=== PATIENT | male | born 1995 | race Caucasian/White ===

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

== ENCOUNTER 2017-02-22 13:17 | Outpatient (CLI) | payer BC ==
[~2017-02-22] VITALS: Ht 180.3 cm; Wt 60.0 kg
[2017-02-22 13:40] LABS: HEMATOCRIT 42.2 % (36.0-47.0); HEMOGLOBIN 14.4 g/dl (12.5-16.1); MEAN CELL VOLUME 77 fl (80.0-95.0); MEAN CORPUSCULAR HEMOGLOBIN 26 pg (26.0-32.0); MEAN CORPUSCULAR HGB CONC 34 g/dl (33.0-37.0); MEAN PLATELET VOLUME 9.9 fl (7.4-10.4); PLATELET COUNT 236 K/mm3 (130-400); RED BLOOD COUNT 5.45 M/mm3 (4.20-5.60); WHITE BLOOD COUNT 7.4 K/mm3 (4.8-10.8)
[2017-02-22 15:20] VITALS: BP 100/67; PULSE 73; TEMP 98
[2017-02-22 15:50] VITALS: BP 86/49; PULSE 62; TEMP 98.1
[2017-02-22 16:20] VITALS: BP 90/51; PULSE 83; TEMP 98
[2017-02-22 16:50] VITALS: BP 110/71; PULSE 81; TEMP 97.1
[2017-02-22 17:20] VITALS: BP 111/67; PULSE 75; TEMP 97.8
== END 2017-02-22 19:16 | disposition home or self-care (01) ==
LOC: EUO 13:17
PROVIDERS: Internal Medicine Gastroenterology
DX: K50.10 Crohn's disease of large intestine without complications (principal); Z79.899 Other long term (current) drug therapy
CPT/HCPCS: J1200; J1745; J7050; Q5102-ZB

== ENCOUNTER 2017-04-19 13:14 | Outpatient (CLI) | payer BC ==
[~2017-04-19] VITALS: Ht 180.3 cm; Wt 62.5 kg
[2017-04-19 13:25] LABS: HEMATOCRIT 43.6 % (36.0-47.0); HEMOGLOBIN 14.4 g/dl (12.5-16.1); MEAN CELL VOLUME 79 fl (80.0-95.0); MEAN CORPUSCULAR HEMOGLOBIN 26 pg (26.0-32.0); MEAN CORPUSCULAR HGB CONC 33 g/dl (33.0-37.0); MEAN PLATELET VOLUME 9.5 fl (7.4-10.4); PLATELET COUNT 251 K/mm3 (130-400); RED BLOOD COUNT 5.49 M/mm3 (4.20-5.60); REDCELL DISTRIBUTION WIDTH-CV 13.1 % (11.5-14.5); WHITE BLOOD COUNT 8.6 K/mm3 (4.8-10.8)
[2017-04-19 14:25] VITALS: BP 109/62; PULSE 77; TEMP 97.4
[2017-04-19 14:55] VITALS: BP 109/68; PULSE 71; TEMP 97.8
[2017-04-19 15:25] VITALS: BP 112/69; PULSE 89; TEMP 97.5
[2017-04-19 15:55] VITALS: BP 120/73; PULSE 52; TEMP 97.6
[2017-04-19 16:20] VITALS: BP 132/115; PULSE 90; TEMP 97.9
== END 2017-04-19 17:50 | disposition home or self-care (01) ==
LOC: EUO 13:14
PROVIDERS: Internal Medicine Gastroenterology
DX: K50.10 Crohn's disease of large intestine without complications (principal); Z79.899 Other long term (current) drug therapy
CPT/HCPCS: J7050; Q5102-ZB

== ENCOUNTER 2017-08-16 13:10 | Outpatient (CLI) | payer BC ==
[~2017-08-16] VITALS: Ht 182.9 cm; Wt 60.0 kg
[2017-08-16 13:37] LABS: HEMATOCRIT 41.5 % (36.0-47.0); MEAN CELL VOLUME 78 fl (80.0-95.0); MEAN CORPUSCULAR HEMOGLOBIN 26 pg (26.0-32.0); MEAN CORPUSCULAR HGB CONC 34 g/dl (33.0-37.0); MEAN PLATELET VOLUME 9.7 fl (7.4-10.4); PLATELET COUNT 244 K/mm3 (130-400); RED BLOOD COUNT 5.33 M/mm3 (4.20-5.60); REDCELL DISTRIBUTION WIDTH-CV 12.9 % (11.5-14.5)
[2017-08-16 14:25] VITALS: BP 120/87; PULSE 68; TEMP 97.3
[2017-08-16 14:55] VITALS: BP 121/69; PULSE 81; TEMP 98
[2017-08-16 15:25] VITALS: BP 115/76; PULSE 82; TEMP 97.7
[2017-08-16 15:55] VITALS: BP 116/82; PULSE 67; TEMP 97.5
[2017-08-16 16:25] VITALS: BP 116/77; PULSE 60; TEMP 97.7
== END 2017-08-16 16:39 | disposition home or self-care (01) ==
LOC: EUO 13:10
PROVIDERS: Internal Medicine Gastroenterology
DX: K50.10 Crohn's disease of large intestine without complications (principal); Z79.899 Other long term (current) drug therapy
CPT/HCPCS: J7050; Q5102-ZB

== ENCOUNTER 2017-10-20 15:46 | Outpatient (CLI) | payer BC ==
[~2017-10-20] VITALS: Ht 182.9 cm; Wt 59.1 kg
[2017-10-20 16:06] LABS: HEMATOCRIT 42.1 % (36.0-47.0); HEMOGLOBIN 14.3 g/dl (12.5-16.1); MEAN CELL VOLUME 78 fl (80.0-95.0); MEAN CORPUSCULAR HEMOGLOBIN 26 pg (26.0-32.0); MEAN CORPUSCULAR HGB CONC 34 g/dl (33.0-37.0); MEAN PLATELET VOLUME 10.2 fl (7.4-10.4); PLATELET COUNT 267 K/mm3 (130-400); RED BLOOD COUNT 5.41 M/mm3 (4.20-5.60); REDCELL DISTRIBUTION WIDTH-CV 13.2 % (11.5-14.5)
[2017-10-20 16:14] VITALS: BP 117/66; PULSE 75; TEMP 98.1
== END 2017-10-20 19:19 | disposition home or self-care (01) ==
LOC: EUO 15:46
PROVIDERS: Internal Medicine Gastroenterology
DX: K50.10 Crohn's disease of large intestine without complications (principal); Z79.899 Other long term (current) drug therapy
CPT/HCPCS: J7050; Q5102-ZB

== ENCOUNTER 2017-12-21 13:11 | Outpatient (CLI) | payer BC ==
[~2017-12-21] VITALS: Ht 182.9 cm; Wt 60.0 kg
[2017-12-21 13:35] LABS: HEMATOCRIT 42.2 % (36.0-47.0); MEAN CELL VOLUME 78 fl (80.0-95.0); MEAN CORPUSCULAR HEMOGLOBIN 26 pg (26.0-32.0); MEAN CORPUSCULAR HGB CONC 33 g/dl (33.0-37.0); MEAN PLATELET VOLUME 9.8 fl (7.4-10.4); PLATELET COUNT 260 K/mm3 (130-400); RED BLOOD COUNT 5.41 M/mm3 (4.20-5.60); REDCELL DISTRIBUTION WIDTH-CV 13.3 % (11.5-14.5)
[2017-12-21 13:45] LABS: ALBUMIN 4.3 gm/dL (3.5-5.0); BILIRUBIN,TOTAL 0.8 mg/dL (0.0-1.0); CALCIUM 9.2 mg/dL (8.4-10.2); CREATININE, serum 0.78 mg/dL (0.66-1.25); POTASSIUM 4.1 mmol/L (3.4-5.0); TOTAL PROTEIN 8.1 gm/dL (6.4-8.2)
[2017-12-21 14:45] VITALS: BP 110/62; PULSE 70; TEMP 98.2
[2017-12-21 15:15] VITALS: BP 103/66; PULSE 72; TEMP 98.2
[2017-12-21 15:45] VITALS: BP 107/69; PULSE 65; TEMP 98.4
[2017-12-21 16:15] VITALS: BP 107/76; PULSE 66
[2017-12-21 16:45] VITALS: BP 110/72; PULSE 64; TEMP 98.2
== END 2017-12-21 16:49 | disposition home or self-care (01) ==
LOC: EUO 13:11
PROVIDERS: Internal Medicine Gastroenterology
DX: K50.10 Crohn's disease of large intestine without complications (principal); Z79.899 Other long term (current) drug therapy
CPT/HCPCS: J7050; Q5103

== ENCOUNTER 2018-02-15 13:28 | Outpatient (CLI) | payer BC ==
[~2018-02-15] VITALS: Ht 182.9 cm; Wt 60.0 kg
[2018-02-15 13:54] LABS: HEMOGLOBIN 13.9 g/dl (12.5-16.1); MEAN CELL VOLUME 77 fl (80.0-95.0); MEAN CORPUSCULAR HEMOGLOBIN 26 pg (26.0-32.0); MEAN CORPUSCULAR HGB CONC 34 g/dl (33.0-37.0); MEAN PLATELET VOLUME 9.6 fl (7.4-10.4); PLATELET COUNT 259 K/mm3 (130-400); RED BLOOD COUNT 5.32 M/mm3 (4.20-5.60); REDCELL DISTRIBUTION WIDTH-CV 13.1 % (11.5-14.5)
[2018-02-15 14:03] LABS: ALBUMIN 4.2 gm/dL (3.5-5.0); BILIRUBIN,TOTAL 0.6 mg/dL (0.0-1.0); CALCIUM 9.1 mg/dL (8.4-10.2); CREATININE, serum 0.73 mg/dL (0.66-1.25); POTASSIUM 3.9 mmol/L (3.4-5.0); TOTAL PROTEIN 7.6 gm/dL (6.4-8.2)
[2018-02-15 15:00] VITALS: BP 108/56; PULSE 81; TEMP 98.1
[2018-02-15 15:30] VITALS: BP 110/63; PULSE 78; TEMP 98
[2018-02-15 16:00] VITALS: BP 110/60; PULSE 80
[2018-02-15 16:30] VITALS: BP 113/72; PULSE 76; TEMP 97.9
[2018-02-15 17:00] VITALS: BP 118/61; PULSE 74; TEMP 97.9
== END 2018-02-15 17:05 | disposition home or self-care (01) ==
LOC: EUO 13:28
PROVIDERS: Internal Medicine Gastroenterology
DX: K50.10 Crohn's disease of large intestine without complications (principal)
CPT/HCPCS: J7050; Q5103

== ENCOUNTER 2018-04-12 13:40 | Outpatient (CLI) | payer BC ==
[~2018-04-12] VITALS: Ht 182.9 cm; Wt 61.7 kg
[2018-04-12 14:01] LABS: HEMATOCRIT 42.5 % (36.0-47.0); HEMOGLOBIN 14.2 g/dl (12.5-16.1); MEAN CELL VOLUME 78 fl (80.0-95.0); MEAN CORPUSCULAR HEMOGLOBIN 26 pg (26.0-32.0); MEAN CORPUSCULAR HGB CONC 33 g/dl (33.0-37.0); MEAN PLATELET VOLUME 9.7 fl (7.4-10.4); PLATELET COUNT 255 K/mm3 (130-400); RED BLOOD COUNT 5.43 M/mm3 (4.20-5.60)
[2018-04-12 14:40] VITALS: BP 107/62; PULSE 75; TEMP 97.2
[2018-04-12 15:10] VITALS: BP 107/67; PULSE 73; TEMP 98.8
[2018-04-12 15:40] VITALS: BP 112/70; PULSE 83; TEMP 97.6
[2018-04-12 16:10] VITALS: BP 114/64; PULSE 87; TEMP 98.2
[2018-04-12 16:40] VITALS: BP 115/67; PULSE 87; TEMP 97.4
== END 2018-04-12 18:00 | disposition home or self-care (01) ==
LOC: EUO 13:40
PROVIDERS: Internal Medicine Gastroenterology
DX: K50.10 Crohn's disease of large intestine without complications (principal); Z79.899 Other long term (current) drug therapy
CPT/HCPCS: J7050; Q5103

== ENCOUNTER 2018-08-09 14:08 | Outpatient (CLI) | payer BC ==
[~2018-08-09] VITALS: Ht 182.9 cm; Wt 63.6 kg
[2018-08-09 14:50] LABS: HEMATOCRIT 42.7 % (42.0-52.0); HEMOGLOBIN 14.3 g/dl (13.5-18.0); MEAN CELL VOLUME 78 fl (80.0-100.0); MEAN CORPUSCULAR HEMOGLOBIN 26 pg (27.0-31.0); MEAN CORPUSCULAR HGB CONC 34 g/dl (33.0-37.0); MEAN PLATELET VOLUME 9.8 fl (7.4-10.4); PLATELET COUNT 272 K/mm3 (130-400); RED BLOOD COUNT 5.47 M/mm3 (4.20-5.60); REDCELL DISTRIBUTION WIDTH-CV 12.8 % (11.5-14.5)
[2018-08-09 15:47] VITALS: BP 148/92; PULSE 96; TEMP 97.7
[2018-08-09 16:15] VITALS: BP 113/67; PULSE 78
[2018-08-09 16:45] VITALS: BP 115/90; PULSE 80
[2018-08-09 17:01] VITALS: BP 114/62; PULSE 71; TEMP 98.2
[2018-08-09 17:42] VITALS: BP 104/82; PULSE 78; TEMP 98.4
== END 2018-08-09 18:14 | disposition home or self-care (01) ==
LOC: EUO 14:08
PROVIDERS: Internal Medicine Gastroenterology
DX: K50.10 Crohn's disease of large intestine without complications (principal); Z79.899 Other long term (current) drug therapy
CPT/HCPCS: J7050; Q5103

== ENCOUNTER 2018-10-04 14:10 | Outpatient (CLI) | payer BC ==
[~2018-10-04] VITALS: Ht 182.9 cm; Wt 62.7 kg
[2018-10-04 14:55] LABS: HEMOGLOBIN 15.5 g/dl (13.5-18.0); MEAN CELL VOLUME 79 fl (80.0-100.0); MEAN CORPUSCULAR HEMOGLOBIN 27 pg (27.0-31.0); MEAN CORPUSCULAR HGB CONC 34 g/dl (33.0-37.0); MEAN PLATELET VOLUME 9.8 fl (7.4-10.4); PLATELET COUNT 275 K/mm3 (130-400); RED BLOOD COUNT 5.85 M/mm3 (4.20-5.60); REDCELL DISTRIBUTION WIDTH-CV 13.1 % (11.5-14.5)
[2018-10-04 16:05] VITALS: BP 110/70; PULSE 80; TEMP 97.9
[2018-10-04 16:35] VITALS: BP 116/74; PULSE 78
[2018-10-04 17:05] VITALS: BP 110/69; PULSE 69; TEMP 98.2
[2018-10-04 17:25] VITALS: BP 118/74; PULSE 85
[2018-10-04 17:53] VITALS: BP 116/75; PULSE 85
[2018-10-04 18:04] VITALS: BP 109/70; PULSE 74; TEMP 98
== END 2018-10-04 18:04 | disposition home or self-care (01) ==
LOC: EUO 14:10
PROVIDERS: Internal Medicine Gastroenterology
DX: K50.10 Crohn's disease of large intestine without complications (principal); Z79.899 Other long term (current) drug therapy
CPT/HCPCS: J1200; J7050; Q5103

== ENCOUNTER 2018-11-29 13:26 | Outpatient (CLI) | payer BC ==
[~2018-11-29] VITALS: Ht 182.9 cm; Wt 60.0 kg
[2018-11-29 13:44] LABS: HEMOGLOBIN 14.2 g/dl (13.5-18.0); MEAN CELL VOLUME 80 fl (80.0-100.0); MEAN CORPUSCULAR HEMOGLOBIN 26 pg (27.0-31.0); MEAN CORPUSCULAR HGB CONC 33 g/dl (33.0-37.0); MEAN PLATELET VOLUME 10.1 fl (7.4-10.4); PLATELET COUNT 236 K/mm3 (130-400); RED BLOOD COUNT 5.41 M/mm3 (4.20-5.60); REDCELL DISTRIBUTION WIDTH-CV 13.2 % (11.5-14.5)
[2018-11-29 13:56] LABS: ALBUMIN 4.4 gm/dL (3.5-5.0); BILIRUBIN,TOTAL 0.7 mg/dL (0.0-1.0); CALCIUM 9.5 mg/dL (8.4-10.2); CREATININE, serum 0.8 (0.66-1.25); POTASSIUM 4.4 mmol/L (3.4-5.0); TOTAL PROTEIN 7.8 gm/dL (6.4-8.2)
[2018-11-29 14:45] VITALS: BP 104/69; PULSE 72; TEMP 97.7
[2018-11-29 15:15] VITALS: BP 111/78; PULSE 73; TEMP 98
[2018-11-29 15:45] VITALS: BP 108/79; PULSE 72; TEMP 97.9
[2018-11-29 16:15] VITALS: BP 113/78; PULSE 73; TEMP 98
[2018-11-29 16:45] VITALS: BP 114/80; PULSE 72; TEMP 98
== END 2018-11-29 16:47 | disposition home or self-care (01) ==
LOC: EUO 13:26
PROVIDERS: Internal Medicine Gastroenterology
DX: K50.10 Crohn's disease of large intestine without complications (principal); Z79.899 Other long term (current) drug therapy
CPT/HCPCS: J7050; Q5103

== ENCOUNTER 2019-01-24 13:33 | Outpatient (CLI) | payer BC ==
[~2019-01-24] VITALS: Ht 182.9 cm; Wt 61.0 kg
[2019-01-24 13:48] LABS: HEMATOCRIT 43.6 % (42.0-52.0); HEMOGLOBIN 14.5 g/dl (13.5-18.0); MEAN CELL VOLUME 78 fl (80.0-100.0); MEAN CORPUSCULAR HEMOGLOBIN 26 pg (27.0-31.0); MEAN CORPUSCULAR HGB CONC 33 g/dl (33.0-37.0); MEAN PLATELET VOLUME 10.1 fl (7.4-10.4); PLATELET COUNT 277 K/mm3 (130-400); RED BLOOD COUNT 5.56 M/mm3 (4.20-5.60); REDCELL DISTRIBUTION WIDTH-CV 13.1 % (11.5-14.5)
[2019-01-24 14:02] VITALS: BP 113/62; PULSE 64; TEMP 97.3
[2019-01-24 15:15] VITALS: BP 98/60; PULSE 78; TEMP 97.7
[2019-01-24 15:45] VITALS: BP 115/65; PULSE 46; TEMP 97.8
[2019-01-24 16:15] VITALS: BP 119/77; PULSE 77; TEMP 98
--- NOTE | 2019-01-24 16:28 | NUR ---
Report to Kaye Noonan RN who assumed care at this time.
[2019-01-24 16:45] VITALS: BP 103/63; PULSE 68; TEMP 97.4
[2019-01-24 17:15] VITALS: BP 99/68; PULSE 69; TEMP 98.1
== END 2019-01-24 17:33 | disposition home or self-care (01) ==
LOC: EUO 13:33
PROVIDERS: Internal Medicine Gastroenterology
DX: K50.10 Crohn's disease of large intestine without complications (principal); Z79.899 Other long term (current) drug therapy
CPT/HCPCS: J7050; Q5103

== ENCOUNTER 2019-03-21 13:19 | Outpatient (CLI) | payer BC ==
[~2019-03-21] VITALS: Ht 182.9 cm; Wt 61.0 kg
[2019-03-21 13:29] VITALS: BP 120/76; PULSE 92; TEMP 97.8
--- NOTE | 2019-03-21 13:45 | NUR ---
20G IV INSERTED TO LEFT AC. LAB OBTAINED AND SENT TO LAB
[2019-03-21 13:51] LABS: HEMATOCRIT 44.3 % (42.0-52.0); HEMOGLOBIN 14.7 g/dl (13.5-18.0); MEAN CELL VOLUME 78 fl (80.0-100.0); MEAN CORPUSCULAR HEMOGLOBIN 26 pg (27.0-31.0); MEAN CORPUSCULAR HGB CONC 33 g/dl (33.0-37.0); MEAN PLATELET VOLUME 9.8 fl (7.4-10.4); PLATELET COUNT 279 K/mm3 (130-400); RED BLOOD COUNT 5.71 M/mm3 (4.20-5.60); REDCELL DISTRIBUTION WIDTH-CV 12.9 % (11.5-14.5)
[2019-03-21 14:20] VITALS: BP 104/60; PULSE 81; TEMP 98
--- NOTE | 2019-03-21 14:25 | NUR ---
Report from Ericka Jade.
[2019-03-21 14:50] VITALS: BP 106/68; PULSE 78
[2019-03-21 15:20] VITALS: BP 110/71; PULSE 80
[2019-03-21 15:40] VITALS: BP 109/68; PULSE 78
[2019-03-21 16:10] VITALS: BP 107/65; PULSE 75; TEMP 98.3
== END 2019-03-21 16:39 | disposition home or self-care (01) ==
LOC: EUO 13:19
PROVIDERS: Internal Medicine Gastroenterology
DX: K50.10 Crohn's disease of large intestine without complications (principal); Z79.899 Other long term (current) drug therapy
CPT/HCPCS: J7050; Q5103

== ENCOUNTER 2019-05-16 13:09 | Outpatient (CLI) | payer BC ==
[~2019-05-16] VITALS: Ht 182.9 cm; Wt 61.0 kg
[2019-05-16 13:28] LABS: HEMATOCRIT 43.3 % (42.0-52.0); HEMOGLOBIN 14.4 g/dl (13.5-18.0); MEAN CELL VOLUME 78 fl (80.0-100.0); MEAN CORPUSCULAR HEMOGLOBIN 26 pg (27.0-31.0); MEAN CORPUSCULAR HGB CONC 33 g/dl (33.0-37.0); PLATELET COUNT 287 K/mm3 (130-400); RED BLOOD COUNT 5.52 M/mm3 (4.20-5.60); REDCELL DISTRIBUTION WIDTH-CV 13.2 % (11.5-14.5)
[2019-05-16 14:55] VITALS: BP 100/66; PULSE 78; TEMP 98.1
[2019-05-16 15:25] VITALS: BP 122/77; PULSE 85
[2019-05-16 15:55] VITALS: BP 103/58; PULSE 69; TEMP 98
[2019-05-16 16:25] VITALS: BP 109/63; PULSE 78
[2019-05-16 16:56] VITALS: BP 117/73; PULSE 92; TEMP 98
== END 2019-05-16 17:01 | disposition home or self-care (01) ==
LOC: EUO 13:09
PROVIDERS: Internal Medicine Gastroenterology
DX: K50.10 Crohn's disease of large intestine without complications (principal); Z79.899 Other long term (current) drug therapy
CPT/HCPCS: J7050; Q5103

== ENCOUNTER 2019-07-16 11:16 | Outpatient (CLI) | payer BC ==
[~2019-07-16] VITALS: Ht 182.9 cm; Wt 60.0 kg
[2019-07-16 11:41] LABS: HEMATOCRIT 44.9 % (42.0-52.0); HEMOGLOBIN 14.7 g/dl (13.5-18.0); MEAN CELL VOLUME 80 fl (80.0-100.0); MEAN CORPUSCULAR HEMOGLOBIN 26 pg (27.0-31.0); MEAN CORPUSCULAR HGB CONC 33 g/dl (33.0-37.0); MEAN PLATELET VOLUME 9.9 fl (7.4-10.4); PLATELET COUNT 280 K/mm3 (130-400); RED BLOOD COUNT 5.65 M/mm3 (4.20-5.60); REDCELL DISTRIBUTION WIDTH-CV 13.2 % (11.5-14.5)
[2019-07-16 11:43] VITALS: BP 117/67; PULSE 78; TEMP 97.4
[2019-07-16 12:00] LABS: ALBUMIN 4.4 gm/dL (3.5-5.0); CALCIUM 9.1 mg/dL (8.4-10.2); CREATININE, serum 0.83 (0.66-1.25); POTASSIUM 4.1 mmol/L (3.4-5.0); TOTAL PROTEIN 7.8 gm/dL (6.4-8.2)
[2019-07-16 12:25] VITALS: BP 102/61; PULSE 77; TEMP 98
[2019-07-16 12:55] VITALS: BP 117/67; PULSE 78; TEMP 97.4
[2019-07-16 13:25] VITALS: BP 109/60; PULSE 70; TEMP 98
[2019-07-16 13:55] VITALS: BP 98/60; PULSE 69; TEMP 98
[2019-07-16 14:25] VITALS: BP 107/6; PULSE 71
== END 2019-07-16 14:53 | disposition home or self-care (01) ==
LOC: EUO 11:16
PROVIDERS: Internal Medicine Gastroenterology
DX: K50.10 Crohn's disease of large intestine without complications (principal); Z79.899 Other long term (current) drug therapy
CPT/HCPCS: J7050; Q5103

== ENCOUNTER 2019-09-18 20:07 | Emergency (ER) | payer BC ==
[~2019-09-18] VITALS: Ht 180.3 cm; Wt 61.4 kg
[2019-09-18] MEDS ORDERED: INFLECTRA100 MG IV (21:33)
[2019-09-18 22:00] LABS: BASO # 0.1 (0.0-0.2); BASO % 0.5 % (0.0-2.0); EOS # 0.1 (0.0-0.7); GRAN # 9.3 (1.4-6.5); GRAN % 72.7 % (42.2-75.2); HEMATOCRIT 44.5 % (42.0-52.0); HEMOGLOBIN 14.8 g/dl (13.5-18.0); LYMPH # 2.1 (1.2-3.4); LYMPH % 16.5 % (20.0-51.0); MEAN CELL VOLUME 78 fl (80.0-100.0); MEAN CORPUSCULAR HEMOGLOBIN 26 pg (27.0-31.0); MEAN CORPUSCULAR HGB CONC 33 g/dl (33.0-37.0); MEAN PLATELET VOLUME 9.8 fl (7.4-10.4); MONO # 1.2 (0.1-0.6); MONO % 9.1 % (1.7-9.3); PLATELET COUNT 327 K/mm3 (130-400); RED BLOOD COUNT 5.72 M/mm3 (4.20-5.60); REDCELL DISTRIBUTION WIDTH-CV 12.8 % (11.5-14.5)
[2019-09-18 22:07] LABS: ALANINE AMINOTRANSFERASE 15 U/L (21-72); ALBUMIN 4.5 gm/dL (3.5-5.0); ALKALINE PHOSPHATASE 75 U/L (50-136); ANION GAP 11 mmol/L (7-16); AST,SGOT 24 U/L (15-37); BILIRUBIN,TOTAL 0.5 mg/dL (0.0-1.0); BLOOD UREA NITROGEN 13 mg/dL (9-20); C-REACTIVE PROTEIN 0.9 mg/dL (0.0-0.9); CALCIUM 9.4 mg/dL (8.4-10.2); CARBON DIOXIDE 24 mmol/L (22-30); CHLORIDE 105 mmol/L (98-107); CREATININE, serum 0.75 (0.66-1.25); GLUCOSE 96 mg/dL (74-106); POTASSIUM 4.5 mmol/L (3.4-5.0); SODIUM 140 mmol/L (137-145); TOTAL PROTEIN 8.3 gm/dL (6.4-8.2)
[2019-09-18 22:18] LABS: TROPONIN-I < 0.012 ng/mL (0.000-0.035)
[2019-09-19] MEDS ORDERED: ZITHROMAX500 M2 PO (00:32)
[2019-09-19 00:53] VITALS: BP 135/90; PULSE 86; TEMP 98.4
== END 2019-09-19 00:55 | disposition home or self-care (01) ==
LOC: COL.ER 20:07
PROVIDERS: Emergency Medicine
DX: J18.9 Pneumonia, unspecified organism (principal); R07.89 Other chest pain; K50.90 Crohn's disease, unspecified, without complications
CPT/HCPCS: J7030; Q9967

== ENCOUNTER 2020-06-02 15:06 | Outpatient (CLI) | payer BC ==
[~2020-06-02] VITALS: Ht 180.3 cm; Wt 59.4 kg
[~2020-06-02 15:06] MED LIST changes: +INFLECTRA100 MG IV; +ZITHROMAX500 M2 PO
[2020-06-02 15:42] LABS: HEMOGLOBIN 14.5 g/dl (13.5-18.0); MEAN CELL VOLUME 78 fl (80.0-100.0); MEAN CORPUSCULAR HEMOGLOBIN 26 pg (27.0-31.0); MEAN CORPUSCULAR HGB CONC 33 g/dl (33.0-37.0); MEAN PLATELET VOLUME 9.7 fl (7.4-10.4); PLATELET COUNT 333 K/mm3 (130-400); RED BLOOD COUNT 5.66 M/mm3 (4.20-5.60)
[2020-06-02 16:01] VITALS: BP 116/75; PULSE 77; TEMP 97.9
[2020-06-02 16:27] VITALS: BP 109/64; PULSE 80; TEMP 97.9
[2020-06-02 16:57] VITALS: BP 118/79; PULSE 79; TEMP 98.8
[2020-06-02 17:27] VITALS: BP 114/74; PULSE 80; TEMP 98.8
[2020-06-02 17:57] VITALS: BP 118/75; PULSE 86; TEMP 98.8
[2020-06-02 18:27] VITALS: BP 122/80; PULSE 84; TEMP 98.8
== END 2020-06-02 18:30 | disposition home or self-care (01) ==
LOC: EUO 15:06
PROVIDERS: Internal Medicine Gastroenterology
DX: K50.10 Crohn's disease of large intestine without complications (principal); Z79.899 Other long term (current) drug therapy
CPT/HCPCS: J7050; Q5103

== ENCOUNTER 2020-07-28 15:03 | Outpatient (CLI) | payer BC ==
[~2020-07-28] VITALS: Ht 180.3 cm; Wt 64.3 kg
[2020-07-28 15:00] VITALS: BP 110/72; PULSE 72; TEMP 98.5
[2020-07-28 15:21] LABS: HEMATOCRIT 42.1 % (42.0-52.0); HEMOGLOBIN 13.5 g/dl (13.5-18.0); MEAN CELL VOLUME 80 fl (80.0-100.0); MEAN CORPUSCULAR HEMOGLOBIN 26 pg (27.0-31.0); MEAN CORPUSCULAR HGB CONC 32 g/dl (33.0-37.0); MEAN PLATELET VOLUME 9.8 fl (7.4-10.4); PLATELET COUNT 283 K/mm3 (130-400); RED BLOOD COUNT 5.27 M/mm3 (4.20-5.60); REDCELL DISTRIBUTION WIDTH-CV 13.2 % (11.5-14.5)
[2020-07-28 16:00] VITALS: BP 110/70; PULSE 76; TEMP 98.6
[2020-07-28 16:30] VITALS: BP 112/73; PULSE 71; TEMP 98.6
[2020-07-28 17:00] VITALS: BP 113/77; PULSE 72; TEMP 98.6
[2020-07-28 17:30] VITALS: BP 112/73; PULSE 74; TEMP 98.6
[2020-07-28 18:00] VITALS: BP 107/64; PULSE 76; TEMP 98.6
== END 2020-07-28 18:11 | disposition home or self-care (01) ==
LOC: EUO 15:03
PROVIDERS: Internal Medicine Gastroenterology
DX: K50.10 Crohn's disease of large intestine without complications (principal); Z79.899 Other long term (current) drug therapy
CPT/HCPCS: J7050; Q5103

== ENCOUNTER 2020-09-22 15:13 | Outpatient (CLI) | payer BC ==
[~2020-09-22] VITALS: Ht 180.3 cm; Wt 65.3 kg
[2020-09-22 15:42] LABS: BASO # 0.1 (0.0-0.2); BASO % 0.9 % (0.0-2.0); EOS # 0.3 (0.0-0.7); EOS % 4.4 % (0-4.0); GRAN # 3.5 (1.4-6.5); GRAN % 46.8 % (42.2-75.2); HEMATOCRIT 43.3 % (42.0-52.0); HEMOGLOBIN 14.6 g/dl (13.5-18.0); LYMPH % 39.9 % (20.0-51.0); MEAN CELL VOLUME 78 fl (80.0-100.0); MEAN CORPUSCULAR HEMOGLOBIN 26 pg (27.0-31.0); MEAN CORPUSCULAR HGB CONC 34 g/dl (33.0-37.0); MEAN PLATELET VOLUME 9.5 fl (7.4-10.4); MONO # 0.6 (0.1-0.6); MONO % 7.9 % (1.7-9.3); PLATELET COUNT 280 K/mm3 (130-400); RED BLOOD COUNT 5.54 M/mm3 (4.20-5.60); REDCELL DISTRIBUTION WIDTH-CV 12.8 % (11.5-14.5)
[2020-09-22 16:14] VITALS: BP 115/86; PULSE 80; TEMP 98.6
[2020-09-22 16:35] VITALS: BP 115/86; PULSE 76; TEMP 98.6
[2020-09-22 17:05] VITALS: BP 113/74; PULSE 79; TEMP 98.6
[2020-09-22 17:35] VITALS: BP 112/66; PULSE 82; TEMP 98.6
[2020-09-22 18:05] VITALS: BP 120/69; PULSE 85; TEMP 98.6
[2020-09-22 18:35] VITALS: BP 118/70; PULSE 82; TEMP 98.6
== END 2020-09-22 18:45 | disposition home or self-care (01) ==
LOC: EUO 15:13
PROVIDERS: Internal Medicine Gastroenterology
DX: K50.10 Crohn's disease of large intestine without complications (principal); Z79.899 Other long term (current) drug therapy
CPT/HCPCS: J7050; Q5103

== ENCOUNTER 2020-11-17 15:11 | Outpatient (CLI) | payer BC ==
[~2020-11-17] VITALS: Ht 180.3 cm; Wt 66.0 kg
[2020-11-17 15:45] LABS: HEMATOCRIT 43.3 % (42.0-52.0); HEMOGLOBIN 14.4 g/dl (13.5-18.0); MEAN CELL VOLUME 79 fl (80.0-100.0); MEAN CORPUSCULAR HEMOGLOBIN 26 pg (27.0-31.0); MEAN CORPUSCULAR HGB CONC 33 g/dl (33.0-37.0); MEAN PLATELET VOLUME 9.9 fl (7.4-10.4); PLATELET COUNT 283 K/mm3 (130-400); RED BLOOD COUNT 5.49 M/mm3 (4.20-5.60)
[2020-11-17 16:10] VITALS: BP 105/46; PULSE 82; TEMP 97.4
[2020-11-17 16:40] VITALS: BP 126/70; PULSE 72; TEMP 97.9
[2020-11-17 17:10] VITALS: BP 112/76; PULSE 69; TEMP 97.5
[2020-11-17 17:40] VITALS: BP 119/78; PULSE 71; TEMP 97.5
[2020-11-17 18:10] VITALS: BP 113/73; PULSE 74
[2020-11-17 18:40] VITALS: BP 122/72; PULSE 75
== END 2020-11-18 16:52 | disposition home or self-care (01) ==
LOC: EUO 15:11
PROVIDERS: Internal Medicine Gastroenterology
DX: K50.10 Crohn's disease of large intestine without complications (principal); Z79.899 Other long term (current) drug therapy
CPT/HCPCS: J7050; Q5103

== ENCOUNTER 2021-01-19 14:15 | Outpatient (CLI) | payer BC ==
[~2021-01-19] VITALS: Ht 180.3 cm; Wt 66.6 kg
[2021-01-19 14:37] LABS: BASO # 0.1 (0.0-0.2); BASO % 0.6 % (0.0-2.0); EOS # 0.5 (0.0-0.7); EOS % 5.4 % (0-4.0); GRAN # 4.6 (1.4-6.5); GRAN % 47.7 % (42.2-75.2); HEMATOCRIT 41.7 % (42.0-52.0); HEMOGLOBIN 13.9 g/dl (13.5-18.0); LYMPH # 3.5 (1.2-3.4); LYMPH % 35.8 % (20.0-51.0); MEAN CELL VOLUME 77 fl (80.0-100.0); MEAN CORPUSCULAR HEMOGLOBIN 26 pg (27.0-31.0); MEAN CORPUSCULAR HGB CONC 33 g/dl (33.0-37.0); MEAN PLATELET VOLUME 9.7 fl (7.4-10.4); MONO % 10.4 % (1.7-9.3); PLATELET COUNT 299 K/mm3 (130-400); REDCELL DISTRIBUTION WIDTH-CV 13.4 % (11.5-14.5)
[2021-01-19 15:03] VITALS: BP 105/56; PULSE 71
[2021-01-19 15:35] VITALS: BP 116/70; BP 117/70; PULSE 77; PULSE 86
[2021-01-19 16:05] VITALS: BP 117/76; PULSE 81
[2021-01-19 17:35] VITALS: PULSE 81
== END 2021-01-19 17:50 | disposition home or self-care (01) ==
LOC: EUO 14:15
PROVIDERS: Internal Medicine Gastroenterology
DX: K50.10 Crohn's disease of large intestine without complications (principal)
CPT/HCPCS: J7050; Q5103

== ENCOUNTER 2021-03-16 13:35 | Outpatient (CLI) | payer BC ==
[~2021-03-16] VITALS: Ht 180.3 cm; Wt 63.2 kg
[2021-03-16 13:57] LABS: HEMATOCRIT 44.7 % (42.0-52.0); HEMOGLOBIN 14.6 g/dl (13.5-18.0); MEAN CELL VOLUME 80 fl (80.0-100.0); MEAN CORPUSCULAR HEMOGLOBIN 26 pg (27.0-31.0); MEAN CORPUSCULAR HGB CONC 33 g/dl (33.0-37.0); MEAN PLATELET VOLUME 9.7 fl (7.4-10.4); PLATELET COUNT 304 K/mm3 (130-400); RED BLOOD COUNT 5.62 M/mm3 (4.20-5.60); REDCELL DISTRIBUTION WIDTH-CV 13.2 % (11.5-14.5)
[2021-03-16 14:15] VITALS: BP 107/64; PULSE 91; TEMP 97.5
[2021-03-16 14:50] VITALS: BP 110/71; PULSE 68
[2021-03-16 15:20] VITALS: BP 102/68; PULSE 70
[2021-03-16 15:50] VITALS: BP 113/77; PULSE 71; TEMP 98.3
[2021-03-16 16:20] VITALS: BP 114/79; PULSE 65
[2021-03-16 16:50] VITALS: BP 117/68; PULSE 62; TEMP 98
--- NOTE | 2021-03-16 16:50 | NUR ---
VSS. IV DC'D. PT AMBULATED OUT FOR DISCHARGE.
== END 2021-03-16 17:11 ==
LOC: EUO 13:35
PROVIDERS: Internal Medicine Gastroenterology
DX: K50.10 Crohn's disease of large intestine without complications (principal); Z79.899 Other long term (current) drug therapy
CPT/HCPCS: J7050; Q5103

== ENCOUNTER 2021-05-18 14:15 | Outpatient (CLI) | payer BC ==
[~2021-05-18] VITALS: Ht 180.3 cm; Wt 48.9 kg
[2021-05-18 14:10] VITALS: BP 110/68; PULSE 76; TEMP 97.8
[2021-05-18 14:36] LABS: BASO # 0.1 K/mm3 (0.0-0.2); BASO % 0.8 % (0.0-2.0); EOS # 0.4 K/mm3 (0.0-0.7); GRAN % 56.2 % (42.2-75.2); HEMATOCRIT 44.7 % (42.0-52.0); HEMOGLOBIN 14.8 g/dl (13.5-18.0); LYMPH # 2.6 K/mm3 (1.2-3.4); MEAN CELL VOLUME 76 fl (80.0-100.0); MEAN CORPUSCULAR HEMOGLOBIN 25 pg (27.0-31.0); MEAN CORPUSCULAR HGB CONC 33 g/dl (33.0-37.0); MEAN PLATELET VOLUME 9.4 fl (7.4-10.4); MONO # 0.9 K/mm3 (0.1-0.6); MONO % 9.8 % (1.7-9.3); PLATELET COUNT 308 K/mm3 (130-400); RED BLOOD COUNT 5.85 M/mm3 (4.20-5.60); REDCELL DISTRIBUTION WIDTH-CV 12.8 % (11.5-14.5)
[2021-05-18 15:15] VITALS: BP 118/78; PULSE 71; TEMP 97.8
[2021-05-18 15:45] VITALS: BP 110/71; PULSE 68; TEMP 97.8
[2021-05-18 16:15] VITALS: BP 120/81; PULSE 68; TEMP 97.8
[2021-05-18 16:45] VITALS: BP 116/76; PULSE 70; TEMP 97.8
[2021-05-18 17:15] VITALS: BP 110/76; PULSE 70; TEMP 97.8
== END 2021-05-18 17:15 | disposition home or self-care (01) ==
LOC: EUO 14:15
PROVIDERS: Internal Medicine Gastroenterology
DX: K50.10 Crohn's disease of large intestine without complications (principal); Z79.899 Other long term (current) drug therapy
CPT/HCPCS: J1200; J7050; Q5103

== ENCOUNTER → 2021-08-25 | Outpatient (CLI) | payer BC ==
[~2021-08-25] MED LIST changes: +PREDNISONE20 MG PO
== END ==
LOC: COL.RAD 09:32
DX: K44.9 Diaphragmatic hernia without obstruction or gangrene (principal)
CPT/HCPCS: Q9967

== ENCOUNTER 2021-08-26 13:50 | Outpatient (CLI) | payer BC ==
[~2021-08-26] VITALS: Ht 180.3 cm; Wt 61.5 kg
[~2021-08-26 13:50] MED LIST changes: -PREDNISONE20 MG PO
[2021-08-26 14:20] LABS: BASO % 0.2 % (0.0-2.0); EOS % 0.3 % (0.0-4.0); GRAN # 9.6 K/mm3 (1.4-6.5); HEMATOCRIT 42.3 % (42.0-52.0); HEMOGLOBIN 14.1 g/dl (13.5-18.0); LYMPH # 1.8 K/mm3 (1.2-3.4); MEAN CELL VOLUME 77 fl (80.0-100.0); MEAN CORPUSCULAR HEMOGLOBIN 26 pg (27-31); MEAN CORPUSCULAR HGB CONC 33 g/dl (33.0-37.0); MEAN PLATELET VOLUME 9.7 fl (7.4-10.4); MONO # 0.5 K/mm3 (0.1-0.6); MONO % 4.2 % (1.7-9.3); PLATELET COUNT 400 K/mm3 (130-400); RED BLOOD COUNT 5.52 M/mm3 (4.20-5.60); REDCELL DISTRIBUTION WIDTH-CV 13.3 % (11.5-14.5)
[2021-08-26 15:00] VITALS: BP 101/66; PULSE 90; TEMP 98.6
[2021-08-26] MEDS ORDERED: PREDNISONE20 MG PO (15:28)
[2021-08-26 15:30] VITALS: BP 102/68; PULSE 7
[2021-08-26 16:01] VITALS: BP 117/80; PULSE 70; TEMP 98.4
[2021-08-26 16:30] VITALS: BP 118/74; PULSE 69; TEMP 98.4
[2021-08-26 17:03] VITALS: BP 126/72; PULSE 70
== END 2021-08-26 17:04 ==
LOC: EUO 13:50
PROVIDERS: Internal Medicine Gastroenterology
DX: K50.119 Crohn's disease of large intestine with unspecified complications (principal)
CPT/HCPCS: J7050; Q5103

== ENCOUNTER 2021-10-21 10:31 | Outpatient (CLI) | payer BC ==
[~2021-10-21] VITALS: Ht 180.3 cm; Wt 62.0 kg
[~2021-10-21 10:31] MED LIST changes: +PREDNISONE20 MG PO
[2021-10-21 10:58] LABS: BASO # 0.1 K/mm3 (0.0-0.2); BASO % 0.5 % (0.0-2.0); EOS # 0.2 K/mm3 (0.0-0.7); EOS % 1.8 % (0.0-4.0); GRAN # 8.1 K/mm3 (1.4-6.5); GRAN % 68.4 % (42.2-75.2); HEMATOCRIT 40.9 % (42.0-52.0); HEMOGLOBIN 13.7 g/dl (13.5-18.0); LYMPH # 2.4 K/mm3 (1.2-3.4); LYMPH % 20.3 % (20.0-51.0); MEAN CELL VOLUME 78 fl (80.0-100.0); MEAN CORPUSCULAR HEMOGLOBIN 26 pg (27-31); MEAN CORPUSCULAR HGB CONC 34 g/dl (33.0-37.0); MEAN PLATELET VOLUME 9.3 fl (7.4-10.4); MONO % 8.7 % (1.7-9.3); PLATELET COUNT 305 K/mm3 (130-400); RED BLOOD COUNT 5.24 M/mm3 (4.20-5.60); REDCELL DISTRIBUTION WIDTH-CV 13.6 % (11.5-14.5)
[2021-10-21] MEDS ORDERED: ENTOCORT EC3 MG PO (11:05)
[2021-10-21 11:45] VITALS: BP 117/66; PULSE 53; TEMP 98.2
[2021-10-21 12:15] VITALS: BP 116/70; PULSE 65
[2021-10-21 12:45] VITALS: BP 110/70; PULSE 80; TEMP 98.2
[2021-10-21 13:32] VITALS: BP 117/76; PULSE 76; TEMP 98.5
[2021-10-21 13:57] VITALS: BP 113/70; PULSE 74
== END 2021-10-21 13:58 ==
LOC: EUO 10:31
PROVIDERS: Internal Medicine Gastroenterology
DX: K50.119 Crohn's disease of large intestine with unspecified complications (principal)
CPT/HCPCS: J7050; Q5103

== ENCOUNTER 2021-12-16 13:55 | Outpatient (CLI) | payer BC ==
[~2021-12-16] VITALS: Ht 180.3 cm; Wt 63.3 kg
[~2021-12-16 13:55] MED LIST changes: +ENTOCORT EC3 MG PO
[2021-12-16 14:21] LABS: BASO # 0.1 K/mm3 (0.0-0.2); BASO % 0.7 % (0.0-2.0); EOS # 0.5 K/mm3 (0.0-0.7); EOS % 3.9 % (0.0-4.0); GRAN # 6.8 K/mm3 (1.4-6.5); GRAN % 59.2 % (42.2-75.2); HEMATOCRIT 43.4 % (42.0-52.0); HEMOGLOBIN 14.4 g/dl (13.5-18.0); LYMPH # 3.2 K/mm3 (1.2-3.4); LYMPH % 27.8 % (20.0-51.0); MEAN CELL VOLUME 77 fl (80.0-100.0); MEAN CORPUSCULAR HEMOGLOBIN 26 pg (27-31); MEAN CORPUSCULAR HGB CONC 33 g/dl (33.0-37.0); MEAN PLATELET VOLUME 9.8 fl (7.4-10.4); MONO # 0.9 K/mm3 (0.1-0.6); MONO % 8.1 % (1.7-9.3); PLATELET COUNT 310 K/mm3 (130-400); RED BLOOD COUNT 5.62 M/mm3 (4.20-5.60); REDCELL DISTRIBUTION WIDTH-CV 13.1 % (11.5-14.5)
[2021-12-16 15:01] VITALS: BP 109/71; PULSE 76; TEMP 97.5
[2021-12-16 15:19] VITALS: BP 112/72; PULSE 71
[2021-12-16 15:45] VITALS: BP 110/72; PULSE 72
[2021-12-16 16:15] VITALS: BP 113/56; PULSE 84
--- NOTE | 2021-12-16 16:24 | NUR ---
I was informed by the , patient has a "bed sore" on his coccyx. With the help of the , we repositioned patient onto his right side. Patient c/o not being comfortable, and chose to let him stay on his back for now.
[2021-12-16 16:45] VITALS: BP 105/70; PULSE 77
[2021-12-16 17:15] VITALS: BP 111/75; PULSE 77
== END 2021-12-16 17:43 | disposition home or self-care (01) ==
LOC: EUO 13:55
PROVIDERS: Internal Medicine Gastroenterology
DX: K50.119 Crohn's disease of large intestine with unspecified complications (principal)
CPT/HCPCS: J7050; Q5103

== ENCOUNTER 2022-02-10 14:03 | Outpatient (CLI) | payer BC ==
[~2022-02-10] VITALS: Ht 180.3 cm; Wt 62.6 kg
[2022-02-10 14:33] LABS: BASO # 0.1 K/mm3 (0.0-0.2); BASO % 0.7 % (0.0-2.0); EOS # 0.5 K/mm3 (0.0-0.7); EOS % 6.7 % (0.0-4.0); GRAN # 2.6 K/mm3 (1.4-6.5); GRAN % 39.3 % (42.2-75.2); HEMATOCRIT 43.7 % (42.0-52.0); HEMOGLOBIN 14.3 g/dl (13.5-18.0); LYMPH % 44.7 % (20.0-51.0); MEAN CELL VOLUME 79 fl (80.0-100.0); MEAN CORPUSCULAR HEMOGLOBIN 26 pg (27-31); MEAN CORPUSCULAR HGB CONC 33 g/dl (33.0-37.0); MEAN PLATELET VOLUME 9.7 fl (7.4-10.4); MONO # 0.6 K/mm3 (0.1-0.6); MONO % 8.5 % (1.7-9.3); PLATELET COUNT 295 K/mm3 (130-400); RED BLOOD COUNT 5.53 M/mm3 (4.20-5.60); REDCELL DISTRIBUTION WIDTH-CV 13.3 % (11.5-14.5)
[2022-02-10 15:21] VITALS: BP 119/72; PULSE 68
[2022-02-10 15:51] VITALS: BP 115/76; PULSE 65
[2022-02-10 16:30] VITALS: BP 138/78; PULSE 70; TEMP 98.2
[2022-02-10 16:51] VITALS: BP 120/71; PULSE 73
[2022-02-10 17:21] VITALS: BP 119/76; PULSE 64
== END 2022-02-10 17:30 | disposition home or self-care (01) ==
LOC: EUO 14:03
PROVIDERS: Internal Medicine Gastroenterology
DX: Z79.899 Other long term (current) drug therapy (principal)
CPT/HCPCS: J7050; Q5103

== ENCOUNTER 2022-04-07 14:13 | Outpatient (CLI) | payer BC ==
[~2022-04-07] VITALS: Ht 180.3 cm; Wt 62.2 kg
[2022-04-07 14:28] LABS: HEMOGLOBIN 14.4 g/dl (13.5-18.0); MEAN CELL VOLUME 78 fl (80.0-100.0); MEAN CORPUSCULAR HEMOGLOBIN 26 pg (27-31); MEAN CORPUSCULAR HGB CONC 34 g/dl (33.0-37.0); MEAN PLATELET VOLUME 9.6 fl (7.4-10.4); PLATELET COUNT 251 K/mm3 (130-400); RED BLOOD COUNT 5.53 M/mm3 (4.20-5.60)
[2022-04-07 14:57] LABS: EOSINOPHIL 4 % (0-4); LYMPHOCYTE 24 % (20.0-51.0); NEUTROPHILS 46 % (42.0-75.2); PLATELET ESTIMATE NORMAL (NORMAL)
[2022-04-07 15:01] VITALS: BP 110/72; PULSE 85; TEMP 98.2
[2022-04-07 15:30] VITALS: BP 114/76; PULSE 76
[2022-04-07 16:00] VITALS: BP 116/78; PULSE 76
[2022-04-07 16:30] VITALS: BP 118/80; PULSE 78
[2022-04-07 17:00] VITALS: BP 114/76; PULSE 76
== END 2022-04-07 17:41 | disposition home or self-care (01) ==
LOC: EUO 14:13
PROVIDERS: Internal Medicine Gastroenterology
DX: Z51.81 Encounter for therapeutic drug level monitoring (principal)
CPT/HCPCS: J1200; J7050; Q5103

== ENCOUNTER 2022-06-02 12:58 | Outpatient (CLI) | payer BC ==
[2022-06-02 13:19] LABS: BASO # 0.1 K/mm3 (0.0-0.2); BASO % 0.6 % (0.0-2.0); EOS # 0.5 K/mm3 (0.0-0.7); GRAN # 3.3 K/mm3 (1.4-6.5); GRAN % 42.5 % (42.2-75.2); HEMATOCRIT 41.8 % (42.0-52.0); HEMOGLOBIN 14.2 g/dl (13.5-18.0); LYMPH # 3.4 K/mm3 (1.2-3.4); LYMPH % 43.1 % (20.0-51.0); MEAN CELL VOLUME 77 fl (80.0-100.0); MEAN CORPUSCULAR HEMOGLOBIN 26 pg (27-31); MEAN CORPUSCULAR HGB CONC 34 g/dl (33.0-37.0); MEAN PLATELET VOLUME 9.5 fl (7.4-10.4); MONO # 0.6 K/mm3 (0.1-0.6); MONO % 7.7 % (1.7-9.3); PLATELET COUNT 274 K/mm3 (130-400); RED BLOOD COUNT 5.45 M/mm3 (4.20-5.60); REDCELL DISTRIBUTION WIDTH-CV 13.3 % (11.5-14.5)
[2022-06-02 13:53] VITALS: BP 104/68; PULSE 74; TEMP 99.1
[2022-06-02 14:20] VITALS: BP 122/79; PULSE 76
[2022-06-02 14:50] VITALS: BP 114/70; PULSE 71
[2022-06-02 15:20] VITALS: BP 117/73; PULSE 75
[2022-06-02 15:50] VITALS: BP 106/58; PULSE 76; TEMP 97.9
== END 2022-06-02 16:41 ==
LOC: EUO 12:58
PROVIDERS: Internal Medicine Gastroenterology
DX: K50.119 Crohn's disease of large intestine with unspecified complications (principal)
CPT/HCPCS: J7050; Q5103

== ENCOUNTER → 2022-09-22 | Outpatient (CLI) | payer BC ==
[2022-09-22 14:31] LABS: BASO % 0.6 % (0.0-2.0); EOS # 0.2 K/mm3 (0.0-0.7); EOS % 2.5 % (0.0-4.0); GRAN # 2.9 K/mm3 (1.4-6.5); GRAN % 45.3 % (42.2-75.2); HEMATOCRIT 41.3 % (42.0-52.0); HEMOGLOBIN 13.8 g/dl (13.5-18.0); LYMPH # 2.7 K/mm3 (1.2-3.4); LYMPH % 41.7 % (20.0-51.0); MEAN CELL VOLUME 78 fl (80.0-100.0); MEAN CORPUSCULAR HEMOGLOBIN 26 pg (27-31); MEAN CORPUSCULAR HGB CONC 33 g/dl (33.0-37.0); MEAN PLATELET VOLUME 9.9 fl (7.4-10.4); MONO # 0.6 K/mm3 (0.1-0.6); MONO % 9.7 % (1.7-9.3); PLATELET COUNT 311 K/mm3 (130-400); RED BLOOD COUNT 5.32 M/mm3 (4.20-5.60); REDCELL DISTRIBUTION WIDTH-CV 13.3 % (11.5-14.5)
[2022-09-22 15:15] VITALS: BP 120/80; PULSE 76; TEMP 97.8
[2022-09-22 15:45] VITALS: BP 128/68; PULSE 72
[2022-09-22 16:15] VITALS: BP 123/63; PULSE 68
[2022-09-22 16:48] VITALS: BP 111/64; PULSE 74
--- NOTE | 2022-09-22 17:02 | NUR ---
Report to Ericka Hagen.
== END ==
LOC: EUO 14:00
PROVIDERS: Internal Medicine Gastroenterology
DX: K50.119 Crohn's disease of large intestine with unspecified complications (principal)
CPT/HCPCS: J7050; Q5103

== ENCOUNTER 2023-08-25 13:43 | Outpatient (CLI) | payer BC ==
[~2023-08-25] VITALS: Ht 180.3 cm; Wt 74.4 kg
[~2023-08-25 13:43] MED LIST changes: +CLARITIN 1010 MG/TAB PO
[2023-08-25 14:11] LABS: BASO % 0.4 % (0.0-2.0); EOS # 0.3 K/mm3 (0.0-0.7); EOS % 3.1 % (0.0-4.0); GRAN # 4.3 K/mm3 (1.4-6.5); HEMATOCRIT 41.7 % (42.0-52.0); HEMOGLOBIN 14.3 g/dl (13.5-18.0); LYMPH # 3.8 K/mm3 (1.2-3.4); LYMPH % 40.9 % (20.0-51.0); MEAN CELL VOLUME 79 fl (80.0-100.0); MEAN CORPUSCULAR HEMOGLOBIN 27 pg (27-31); MEAN CORPUSCULAR HGB CONC 34 g/dl (33.0-37.0); MEAN PLATELET VOLUME 9.7 fl (7.4-10.4); MONO # 0.9 K/mm3 (0.1-0.6); MONO % 9.4 % (1.7-9.3); PLATELET COUNT 257 K/mm3 (130-400); RED BLOOD COUNT 5.31 M/mm3 (4.20-5.60); REDCELL DISTRIBUTION WIDTH-CV 12.8 % (11.5-14.5)
[2023-08-25 14:41] VITALS: BP 122/76; PULSE 86; TEMP 98.4
[2023-08-25] MEDS ORDERED: Acetaminophen 325 MG TAB PO ONE (14:45)
[2023-08-25] MEDS ORDERED: diphenhydrAMINE 50 MG/ML 1 ML VIAL IV ONE (14:45)
[2023-08-25] MEDS ORDERED: inFLIXimab-dyyb (Inflectra) 400 MG in NS 250 ML IV ONE (15:15)
[2023-08-25 15:20] VITALS: BP 142/77; PULSE 83
[2023-08-25 15:50] VITALS: BP 117/68; PULSE 74
[2023-08-25 16:20] VITALS: BP 122/78; PULSE 74; TEMP 98.5
--- NOTE | 2023-08-25 16:47 | NUR ---
Report received from Ericka Rivera.
[2023-08-25 16:50] VITALS: BP 118/72; PULSE 73
== END 2023-08-25 17:19 ==
LOC: EUO 13:43
PROVIDERS: Internal Medicine Gastroenterology
DX: K50.119 Crohn's disease of large intestine with unspecified complications (principal)
CPT/HCPCS: J7050; Q5103

== ENCOUNTER 2023-10-20 11:29 | Outpatient (CLI) | payer SELFPAY ==
[~2023-10-20] VITALS: Ht 180.3 cm; Wt 72.1 kg
[2023-10-20 12:08] LABS: BASO # 0.1 K/mm3 (0.0-0.2); BASO % 0.7 % (0.0-2.0); EOS # 0.1 K/mm3 (0.0-0.7); EOS % 1.7 % (0.0-4.0); GRAN # 3.5 K/mm3 (1.4-6.5); GRAN % 46.1 % (42.2-75.2); HEMATOCRIT 42.9 % (42.0-52.0); HEMOGLOBIN 14.4 g/dl (13.5-18.0); LYMPH # 3.4 K/mm3 (1.2-3.4); LYMPH % 44.3 % (20.0-51.0); MEAN CELL VOLUME 79 fl (80.0-100.0); MEAN CORPUSCULAR HEMOGLOBIN 27 pg (27-31); MEAN CORPUSCULAR HGB CONC 34 g/dl (33.0-37.0); MONO # 0.5 K/mm3 (0.1-0.6); MONO % 7.1 % (1.7-9.3); PLATELET COUNT 233 K/mm3 (130-400); RED BLOOD COUNT 5.41 M/mm3 (4.20-5.60); REDCELL DISTRIBUTION WIDTH-CV 13.2 % (11.5-14.5)
[2023-10-20 12:11] VITALS: BP 119/72; PULSE 85; TEMP 98.6
[2023-10-20] MEDS ORDERED: diphenhydrAMINE 50 MG/ML 1 ML VIAL IV ONE (12:30)
[2023-10-20] MEDS ORDERED: Acetaminophen 325 MG TAB PO ONE (12:30)
[2023-10-20] MEDS ORDERED: inFLIXimab-dyyb (Inflectra) 400 MG in NS 250 ML IV ONE (13:00)
== END 2023-10-20 13:50 | disposition home or self-care (01) ==
LOC: EUO 11:29
PROVIDERS: Internal Medicine Gastroenterology
DX: K50.119 Crohn's disease of large intestine with unspecified complications (principal)
CPT/HCPCS: Q5103